=== PATIENT | female | born 1950 | race Caucasian/White ===

== ENCOUNTER → 2022-12-09 | Emergency (ER) | payer MEDICARE, OTHER ==
[~2022-12-09] VITALS: Ht 162.6 cm; Wt 67.1 kg
[~2022-12-09] MED LIST: PRED20TA PO; PSEU120T83 PO
--- NOTE | 2022-12-09 10:45 | NUR ---
RECEIVED PT 72 YRS FEMALE FROM HOME C/O UNABLE TO HEAR WII AND COUGHING
--- NOTE | 2022-12-09 10:50 | NUR ---
SEEN BY DR. ORR
[2022-12-09 11:22] VITALS: BP 157/91
--- NOTE | 2022-12-09 11:22 | NUR ---
Patient discharged to home in stable condition. Written and verbal after care instructions given. Patient verbalizes understanding of instruction.
== END | disposition home or self-care (01) ==
LOC: ER 10:40
DX: H69.82 Other specified disorders of Eustachian tube, left ear (principal); I10 Essential (primary) hypertension; K21.9 Gastro-esophageal reflux disease without esophagitis
CPT/HCPCS: 99283; A6403